=== PATIENT | female | born 1945 | race Two or more races ===

== ENCOUNTER 2017-04-06 10:35 | Day surgery (SDC) | payer OTHER ==
[~2017-04-06] VITALS: Ht 162.6 cm; Wt 71.9 kg
--- NOTE | 2017-04-06 11:25 | RADRPT ---
PROCEDURE: XR Chest 1 View. CLINICAL INDICATION: Abnormal breath sounds, preop. TECHNIQUE: AP view of the chest was obtained. COMPARISON: None. FINDINGS: The heart size is within normal limits. Calcified atherosclerosis is noted in the aorta. Median tiarra rnotomy wires overlie the heart. No consolidations are identified. No pneumothorax is seen. Osseou s structures are intact. IMPRESSION: Calcified atherosclerosis in the aorta. Clear lungs. RPTAT: AA .Cash Mcneill MD, MD Date Time Electronically viewed and signed by .Cash Mcneill MD, on 04/06/2017 11:25 .P/
[2017-04-06] MEDS ORDERED: DOCU-144 PO (11:39)
[2017-04-06] MEDS ORDERED: OMEP40CA6 PO (11:39)
[2017-04-06] MEDS ORDERED: ENAL2.5T PO (11:39)
[2017-04-06] MEDS ORDERED: ASPI81TA3 PO (11:39)
[2017-04-06 11:40] VITALS: BP 123/81; PULSE 66; RESP 20; Ht 162.6 cm; Wt 71.9 kg
[2017-04-06 12:09] LABS: CALCIUM 9.3 mg/dl (8.4-10.2); CREATININE 0.65 mg/dl (0.44-1.00); POTASSIUM 4.3 mmol/L (3.5-5.1)
[2017-04-06] MEDS ORDERED: PROPOFOL 40 ML ONE (12:14)
[2017-04-06 12:15] LABS: ABNORMAL IP MESSAGE 1; BASOPHILS % 0.7 % (0.0-2.0); EOSINOPHILS # 0.1 10^3/ul (0.0-0.5); EOSINOPHILS % 1.5 % (0.0-7.0); HEMATOCRIT 39.1 % (37.0-47.0); LYMPHOCYTES # 2.2 10^3/ul (0.8-2.9); LYMPHOCYTES % 36.5 % (15.0-51.0); MEAN CORPUSCULAR HEMOGLOBIN 29.6 pg (29.0-33.0); MEAN CORPUSCULAR HGB CONC 33.2 g/dl (32.0-37.0); MEAN CORPUSCULAR VOLUME 89.1 fl (82.0-101.0); MEAN PLATELET VOLUME 12.8 fl (7.4-10.4); MONOCYTE # 0.3 10^3/ul (0.3-0.9); MONOCYTES % 4.9 % (0.0-11.0); NEUTROPHIL # 3.3 10^3/ul (1.6-7.5); NEUTROPHILS % 56.1 % (39.0-77.0); RED BLOOD COUNT 4.39 10^6/ul (4.20-5.40); WHITE BLOOD COUNT 5.9 10^3/ul (4.8-10.8)
[2017-04-06 12:38] LABS: POSITIVE DIFF @See below
[2017-04-06 12:40] LABS: PLATELET COUNT 68 10^3/UL (140-415)
--- NOTE | 2017-04-06 12:55 | OPR ---
Date/Time of Note Date/Time of Note DATE: 04/06/17 TIME: 12:44 Operative Report Procedure Date: Apr 06, 2017 Preoperative Diagnosis 1.Aortic Stenosis Postoperative Diagnosis 1.Aortic stenosis Operation Performed 1TEE 2.MAC anesthesia under direction of anesthesiologist Surgeon: BRITT HERNANDEZ Anesthesia: MAC Anesthesiologist: NANCY MIMS Estimated Blood Loss: none Specimens NONE Grafts/Implants NA Tubes/Drains NA Complications: None Pt Condition Post Procedure: stable Disposition: PACU Indications 1.Aortic Stenosis Operative\Procedure Findings 1.Aortic valve leaflets, appear heavil;y calcified and poorly mobile, consistent with aortic stenosis, No signifuicant aortic regurgitation 1.No LA or JUAN ALBERTO spontaneous contrast or definite thrombus, JUAN ALBERTO velocity 30cm/sec 3.No definite PFO or other inter-atrial septal defect by color flow doppler interrogation of septum 4.Mildly thickened mitral valve leaflets with minimally reduced leaflet excursion, mild to moderate MR 5.Normal appearing tricuspid valve apparatus, Trace TR 6.Poorly visualized pulmonic valve apparatus 7.Mild to moderate atherosclerotic plaquing of the patient descending, transverse and ascending aorta Conclusion: 1.Calcified aortic valve leaflets with poor leaflet mobility/excursion consistent with aortic stenosis Procedure Description Patient had bite block placed in mouth. Patien given MAC anesthesia under direction of anesthesiologist at bedside. Esophagus intubated with probe and using multiplaner imaging and color flow doppler inetrrogation the patients intra-cardiac structures were interrogated and then the aorta charly assesed. Probe was removed and patient was allowed to awake from anesthetized state. BRITT HERNANDEZ Apr 06, 2017 12:55
[2017-04-06 13:15] LABS: PROTIME 13.2 Sec (12.2-14.2)
[2017-04-06 13:16] LABS: PARTIAL THROMBOPLASTIN TIME 32.5 Sec (25.0-35.0)
[2017-04-06 13:30] VITALS: BP 153/75; PULSE 51; RESP 18
--- NOTE | 2017-04-06 15:05 | RADRPT ---
Vent Rate: 62 bpm RR Interval: 0 msec DC Interval: 160 msec QRS Duration: 88 msec QT Interval: 462 msec QTC Interval: 468 msec P-R-T [place]: 28 - -12 - 137 degrees Normal sinus rhythm Left ventricular hypertrophy with repolarization abnormality Abnormal ECG Electronically Signed By: Vahe Donis [id number]
== END 2017-04-06 14:05 | disposition home or self-care (01) ==
LOC: SDS 10:35
PROVIDERS: ATTEND Internal Medicine
DX: I35.0 Nonrheumatic aortic (valve) stenosis (principal); I70.0 Atherosclerosis of aorta; I34.0 Nonrheumatic mitral (valve) insufficiency; I10 Essential (primary) hypertension; I25.10 Atherosclerotic heart disease of native coronary artery without angina pectoris
CPT/HCPCS: 71010; 80048; 85025; 85610; 85730; 93005; 93312; 93320; 93325; Z7610